=== PATIENT | male | born 1995 | race Caucasian/White ===

== ENCOUNTER → 2016-11-27 | Outpatient (REF) | payer BC, OTHER ==
[~2016-11-27] MED LIST: NO HOME MEDICATIONS; PROZ20CA11 PO
[2016-11-27 12:35] LABS: ALBUMIN 4.5 GM/DL (3.2-5.2); ALBUMIN/GLOBULIN RATIO 1.41 (1.00-1.93); ALKALINE PHOSPHATASE 91 U/L (45-117); ALT/SGPT 197 U/L (12-78); ANION GAP 6 MEQ/L (8-16); AST/SGOT 87 U/L (15-37); BILIRUBIN,TOTAL 1.7 MG/DL (0.2-1.0); BLOOD UREA NITROGEN 17 MG/DL (7-18); CALCIUM LEVEL 10.3 MG/DL (8.5-10.1); CARBON DIOXIDE LEVEL 32 MEQ/L (21-32); CHLORIDE LEVEL 104 MEQ/L (98-107); CREATININE FOR GFR 0.94 MG/DL (0.70-1.30); GLUCOSE, FASTING 86 MG/DL (70-105); POTASSIUM SERUM 4.6 MEQ/L (3.5-5.1); SODIUM LEVEL 142 MEQ/L (136-145); TOTAL PROTEIN 7.7 GM/DL (6.4-8.2)
[2016-12-01 00:06] LABS: ALT 188 IU/L (0-55); FIBROSIS STAGE F1-F2 (.); GGT 81 IU/L (0-65); HAPTOGLOBIN 117 mg/dL (34-200); NECROINFLAMM GRADE A3-Severe activity (.); TOTAL BILIRUBIN 1.7 mg/dL (0.0-1.2)
== END ==
LOC: M SFHCPLAZ 09:13
PROVIDERS: ATTEND Internal Medicine Infectious Disease
DX: B18.2 Chronic viral hepatitis C (principal)

== ENCOUNTER → 2016-12-17 | Day surgery (SDC) | payer BC ==
[~2016-12-17] VITALS: Ht 175.3 cm; Wt 77.1 kg
[~2016-12-17] MED LIST changes: +LIDOCAINE 2% INJ 100 MG/5 ML SDV (FOR ANES.) As Ordered ONE; +LIDOCAINE W/EPINEPHRINE 1% 20ML VIAL As Ordered ONE; +LIDOCAINE W/EPINEPHRINE 1% 20ML VIAL XX ONE; +LR 1,000 ML IV SCH; +MIDAZOLAM INJ 2 MG/2 ML VIAL (J2250) As Ordered ONE; +NORCO, ANEXSIA 5/325MG TABLET (HYDROcodone/ACETAMINOPHEN) PO PRN; +PERCOCET 5MG/325MG TAB As Ordered ONE; +PERCOCET 5MG/325MG TAB PO PRN; +PROPOFOL 200 MG/20 ML VIAL As Ordered ONE
[2016-12-17] MEDS: LR 1,000 ML IV SCH ×3 (10:15→10:49)
--- NOTE | 2016-12-17 13:29 | REP ---
FLUOROSCOPIC GUIDANCE FOR FOREIGN BODY REMOVAL: 12/17/2016. Four images from C-arm fluoroscopy provided to Dr. York of the surgery department for fluoroscopically guided removal of the antecubital fossa needle foreign body. The first two images show the linear short-segment of the needle in the antecubital fossa with the second image showing a probe adjacent to it. The other two images are lateral and oblique lateral projections. Fluoroscopy time 14.8 seconds. Signed by Parish Olivares MD 12/17/2016 01:55 P
[2016-12-17] MEDS: fentaNYL 100 MCG/2 ML INJECTION (J3010) IV PRN ×2 (13:33→13:45)
[2016-12-17 15:10] VITALS: BP 128/84
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
== END | disposition home or self-care (01) ==
LOC: M SDC 09:42
PROVIDERS: ATTEND Surgery
DX: S50.852A Superficial foreign body of left forearm, initial encounter (principal); B18.2 Chronic viral hepatitis C; F17.210 Nicotine dependence, cigarettes, uncomplicated; F41.9 Anxiety disorder, unspecified; F32.9 Major depressive disorder, single episode, unspecified; Z79.899 Other long term (current) drug therapy; Y93.89 Activity, other specified; Y92.9 Unspecified place or not applicable
CPT/HCPCS: 25248; 76000; 88300; J0690; J2250; J3010

== ENCOUNTER → 2016-12-27 | Outpatient (REF) | payer BC ==
[~2016-12-27] MED LIST changes: -LIDOCAINE 2% INJ 100 MG/5 ML SDV (FOR ANES.) As Ordered ONE; -LIDOCAINE W/EPINEPHRINE 1% 20ML VIAL As Ordered ONE; -LIDOCAINE W/EPINEPHRINE 1% 20ML VIAL XX ONE; -LR 1,000 ML IV SCH; -MIDAZOLAM INJ 2 MG/2 ML VIAL (J2250) As Ordered ONE; -NORCO, ANEXSIA 5/325MG TABLET (HYDROcodone/ACETAMINOPHEN) PO PRN; -PERCOCET 5MG/325MG TAB As Ordered ONE; -PERCOCET 5MG/325MG TAB PO PRN; -PROPOFOL 200 MG/20 ML VIAL As Ordered ONE
== END | disposition home or self-care (01) ==
LOC: M LAB REF 08:59
PROVIDERS: ATTEND Physician Assistant Medical
DX: S41.102A Unspecified open wound of left upper arm, initial encounter (principal); X58.XXXA Exposure to other specified factors, initial encounter; Y92.9 Unspecified place or not applicable; Y93.9 Activity, unspecified; Y99.9 Unspecified external cause status

== ENCOUNTER 2017-10-01 13:37 | Inpatient (IN) | payer BC ==
[~2017-10-01] VITALS: Ht 175.3 cm; Wt 76.0 kg
[2017-10-01 14:11] LABS: MEAN CORPUSCULAR HEMOGLOBIN 31.2 pg (27.0-33.0); MEAN CORPUSCULAR HGB CONC 34.8 g/dl (32.0-36.5); MEAN CORPUSCULAR VOLUME 89.7 fl (80.0-96.0); PLATELET COUNT, AUTOMATED 352 10^3/uL (150-450); RED CELL DISTRIBUTION WIDTH 12.2 % (11.5-14.5); WHITE BLOOD COUNT 7.9 10^3/uL (4.0-10.0)
[2017-10-01 14:49] LABS: ALBUMIN 4.7 GM/DL (3.2-5.2); ALBUMIN/GLOBULIN RATIO 1.24 (1.00-1.93); ALKALINE PHOSPHATASE 90 U/L (45-117); ALT/SGPT 56 U/L (12-78); ANION GAP 6 MEQ/L (8-16); AST/SGOT 26 U/L (7-37); BILIRUBIN,DIRECT 0.3 MG/DL (0.0-0.2); BILIRUBIN,TOTAL 1.3 MG/DL (0.2-1.0); BLOOD UREA NITROGEN 15 MG/DL (7-18); CALCIUM LEVEL 9.7 MG/DL (8.5-10.1); CARBON DIOXIDE LEVEL 29 MEQ/L (21-32); CHLORIDE LEVEL 106 MEQ/L (98-107); CREATININE FOR GFR 0.96 MG/DL (0.70-1.30); GLOMERULAR FILTRATION RATE > 60.0 (>60); GLUCOSE, FASTING 93 MG/DL (70-105); POTASSIUM SERUM 4.3 MEQ/L (3.5-5.1); SODIUM LEVEL 141 MEQ/L (136-145); TOTAL PROTEIN 8.5 GM/DL (6.4-8.2)
[2017-10-01 14:50] LABS: METHADONE URINE NEGATIVE (NEGATIVE)
[2017-10-01] MEDS ORDERED: MOM 30ML SUSPENSION UDC PO PRN (19:00)
[2017-10-01] MEDS ORDERED: traZODone 50 MG TAB PO PRN (19:00)
[2017-10-01] MEDS ORDERED: MAALOX 30 ML SUSP *UDC PO PRN (19:00)
[2017-10-01] MEDS ORDERED: ACETAMINOPHEN TAB 650MG DOSE (2X325MG) PO PRN (19:00)
[2017-10-01] MEDS: LORazepam 2 MG TAB PO PRN (19:16)
[2017-10-01 21:42] VITALS: BP 139/102
[2017-10-01] MEDS: THIAMINE 100 MG TAB PO SCH (23:10)
[2017-10-01 23:43] VITALS: BP 128/78
[2017-10-01 23:45] VITALS: BP 128/78
[2017-10-02 06:10] VITALS: BP 115/69
[2017-10-02 08:18] VITALS: BP 138/90
[2017-10-02] MEDS: LORazepam 2 MG TAB PO PRN (08:23)
[2017-10-02] MEDS: THIAMINE 100 MG TAB PO SCH ×2 (08:23→20:49)
[2017-10-02] MEDS: FOLIC ACID 1 MG TAB PO SCH (08:23)
[2017-10-02] MEDS: MULTIVITAMINS/MINERALS THERAP 1 TAB PO SCH (08:23)
[2017-10-02] MEDS: chlordiazePOXIDE 25 MG CAP PO SCH ×3 (09:00→20:49)
--- NOTE | 2017-10-02 09:24 | HPEPDOC ---
[facility] Medical History & Physical Date of Admission Oct 01, 2017 History and Physical PCP: None Infectious disease. Dr Valerio ATTENDING: Dr. Jabier Triana HPI: 22yoM admitted to [facility] for unspecified depressive disorder, being medically examined today. No acute medical complaints today. Denies any fevers, chills, weakness, fatigue, CIFUENTES, CP, SOB, cough, palpitations, abdominal pain, N/V /D or changes in bowel or bladder habits. PMHx: Anxiety Depression History of IVDU (as per previous records, patient denies today.) Chronic hepatitis C. (Patient states is related to using a razor that his friend had used). Substance use PSHX: Tonsillectomy Foreign body removed from left antecubital 12/19. Pathology foreign body 12/19. Foreign body, left forearm, removal: Foreign body ( consistent with Needle Tip). SOCHX: Resides in: [facility] Marital Status: Kids: 1 Employment: Asbestos removal Tobacco use: Patient states quit one week ago, smoking 1-1/2 packs per day 2 years ETOH: Ricardo, 2-3 drinks. Illicit Drugs: Patient states marijuana. Denies any other drug use. IV Drug Use: Patient Denies Tattoos done unprofessionally: Denies FAMHX: Mother: Alive, well Father: Alive, well Siblings: Alive, well Children: Alive, well Unexpected deaths due to medical reasons: None. ROS: As noted in HPI, otherwise 11pt ROS of systems reviewed and unremarkable. PE: GEN: 22 yo M, appears stated age. Well-nourished, well developed. No acute distress. Alert and oriented x 3. Avoids eye contact HEENT: Normocephalic, atraumatic. Pupils are equal, round, and reactive to light. Extraocular movements are intact. No nystagmus appreciated. Sclera are nonicteric. Conjunctiva without injection. Nose midline. Nasal turbinates without bogginess. EACs both patent BL. TMs both visualized and gill with good cone of light, no bulging or erythema. No facial asymmetry. Moist mucous membranes. Dentition fair. Pharynx pink and moist, no cobblestoning. Neck supple , trachea midline. No lymphadenopathy or thyromegaly appreciated. CHEST: Regular rate and rhythm, +S1, +S2 LUNGS: Clear to auscultation bilaterally. No wheezes, rales, or rhonchi. Breathing appears symmetric and easy. Patient is speaking in full sentences. No accessory muscle use. ABD: Round, soft, non-tender, non-distended. +Bowel sounds throughout. No rebound or guarding. No costovertebral angle tenderness. EXT: Pulses 2+ bilaterally dorsalis pedis and radial. No lower extremity edema appreciated. SKIN: [place], dry, warm. Capillary refill <2sec. No rashes. NEURO: Alert and oriented x 3. Cranial nerves III-XII are intact. No focal deficits appreciated. EKG: Pending A&P: 22yoM admitted to [facility] for unspecified depressive disorder 1. Psych. Plan per Psychiatry. Obtain baseline EKG to assure the safety of psychiatric medications as they can prolong the QT interval. 2. Nicotine dependence. Patch available. 3. Chronic hepatitis C. Management as per Dr. Valerio. Arrange follow-up with Dr. Valerio at discharge. 4. Follow up. No Primary Care Provider. Will attempt to establish PCP on discharge. 5. Substance use. Per psychiatry. 6. Staff member Michael present throughout exam. Vital Signs Vital Signs Date Time Temp Pulse Resp B/P (MAP) Pulse Ox O2 Delivery O2 Flow Rate FiO2 10/02/17 08:18 88 138/90 10/02/17 06:10 99.1 14 10/01/17 21:42 98 Room Air Laboratory Data Labs 24H Laboratory Tests 2 10/01/17 13:58: Nucleated Red Blood Cells % (auto) 0.0, Anion Gap 6L, Glomerular Filtration Rate > 60.0, Calcium Level 9.7, Aspartate Amino Transf (AST/SGOT) 26, Alanine Aminotransferase (ALT/SGPT) 56, Alkaline Phosphatase 90, Total Bilirubin 1.3H, Direct Bilirubin 0.3H, Total Protein 8.5H, Albumin 4.7, Albumin/Globulin Ratio 1.24, Thyroid Stimulating Hormone (TSH) 0.827, Salicylates Level < 1.7L, Urine Amphetamines Screen NEGATIVE, Urine Benzodiazepines Screen NEGATIVE, Urine Opiates Screen NEGATIVE, Urine Methadone Screen NEGATIVE, Acetaminophen Level < 2.0L, Urine Barbiturates Screen NEGATIVE, Urine Phencyclidine Screen NEGATIVE, Urine Cocaine Metabolite Screen NEGATIVE, Urine Cannabinoids Screen POSITIVEH, Ethyl Alcohol Level < 0.003 CBC/BMP Laboratory Tests 10/01/17 13:58 Red Blood Count 5.54, Mean Corpuscular Volume 89.7, Mean Corpuscular Hemoglobin 31.2, Mean Corpuscular Hemoglobin Concent 34.8, Red Cell Distribution Width 12.2 Home Medications No Active Prescriptions or Reported Meds Allergies Coded Allergies: Venlafaxine (Verified Allergy, Unknown, 10/13/14) PT REPORTS "I MADE ME CRAZY" Shonda Bills Oct 02, 2017 09:24
[2017-10-02 10:13] VITALS: BP 138/88
[2017-10-02] MEDS: DIVALPROEX 250 MG TAB PO SCH ×2 (10:38→20:48)
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
[2017-10-02] MEDS: NICOTINE 21MG/24HR 1 EA TRANSDERMAL TD SCH (11:37)
[2017-10-02 15:13] VITALS: BP 163/115
[2017-10-02 16:20] VITALS: BP 148/100
[2017-10-02] MEDS: chlordiazePOXIDE 25 MG CAP PO PRN (16:25)
[2017-10-02 18:00] VITALS: BP 148/90
[2017-10-02] MEDS: QUEtiapine FUMARATE 100 MG TAB PO SCH (20:49)
[2017-10-03 06:55] VITALS: BP 149/69
--- NOTE | 2017-10-03 07:20 | ECGEPIP ---
Stationary ECG Study [facility] Test Date: 2017-10-02 Pat Name: GENARO SCOTT Department: Room: [place] [address] Gender: M Senior Qc Technician: LAURA : 1995 Requested By: Shonda Bills Order Number: [id number] Reading MD: Sharmin Francis Measurements Intervals [place] Rate: 115 P: 76 CA: 156 QRS: 85 QRSD: 97 T: 42 QT: 324 QTc: 449 Interpretive Statements SINUS TACHYCARDIA RATE FASTER PERSISTENT SEPTAL EARLY REPOLAR C/W 10/12/14 Electronically Signed On 10-03-2017 7:20:21 EST by Sharmin Francis
[2017-10-03] MEDS: THIAMINE 100 MG TAB PO SCH ×2 (08:42→20:28)
[2017-10-03] MEDS: chlordiazePOXIDE 25 MG CAP PO SCH ×3 (08:42→20:28)
[2017-10-03] MEDS: MULTIVITAMINS/MINERALS THERAP 1 TAB PO SCH (08:42)
[2017-10-03] MEDS: FOLIC ACID 1 MG TAB PO SCH (08:42)
[2017-10-03] MEDS: DIVALPROEX 250 MG TAB PO SCH ×2 (08:43→20:28)
[2017-10-03] MEDS: NICOTINE 21MG/24HR 1 EA TRANSDERMAL TD SCH (08:45)
[2017-10-03 10:46] VITALS: BP 144/92
[2017-10-03] MEDS: chlordiazePOXIDE 25 MG CAP PO PRN ×2 (10:48→17:23)
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
[2017-10-03 17:22] VITALS: BP 148/90
[2017-10-03] MEDS: QUEtiapine FUMARATE 100 MG TAB PO SCH (20:28)
[2017-10-04 06:38] VITALS: BP 141/90
[2017-10-04] MEDS: THIAMINE 100 MG TAB PO SCH (08:27)
[2017-10-04] MEDS: NICOTINE 21MG/24HR 1 EA TRANSDERMAL TD SCH (08:27)
[2017-10-04] MEDS: MULTIVITAMINS/MINERALS THERAP 1 TAB PO SCH (08:27)
[2017-10-04] MEDS: DIVALPROEX 250MG *ER* TAB PO SCH (08:27)
[2017-10-04] MEDS: FOLIC ACID 1 MG TAB PO SCH (08:28)
[2017-10-04] MEDS: chlordiazePOXIDE 25 MG CAP PO SCH ×2 (08:28→20:06)
[2017-10-04 08:55] VITALS: BP 148/90
[2017-10-04 10:34] VITALS: BP 138/90
[2017-10-04] MEDS: chlordiazePOXIDE 25 MG CAP PO PRN ×2 (10:40→15:53)
[2017-10-04 15:50] VITALS: BP 142/92
--- NOTE | 2017-10-04 16:58 | MHIPN ---
DATE: 10/04/2017 CHIEF COMPLAINT: Says feels a bit better. SUBJECTIVE: Seen for followup in the presence of staff. Says feels a bit better, irritability has continued but not as intensely, says had come to his room yesterday, and cried, and did not hit himself, did not feel like doing so either. Says sleep was broken last night. He has been worried about his brother, who was "jumped" recently, but [place], so the patient is more reassured. MENTAL STATUS EXAMINATION: He is neat, he is cooperative. No agitation, no psychomotor retardation. Appears mildly anxious, but not irritable. Affect somewhat broader than yesterday, and less labile. Denies any thoughts of harming himself at present or anyone else. No evidence of any psychosis. Cognition grossly intact. Judgment and insight though compromised, are possibly somewhat improved. ASSESSMENT: 1. Other specified bipolar and related disorders. 2. Consider posttraumatic stress disorder. 3. Cannabis use disorder. VITAL SIGNS: Blood pressure 138/90, pulse 92, temperature 98.6. PLAN: Continue with the quetiapine, may need to consider increasing it, as well as the Depakote; Depakote is increased to a total of 750 mg to help address his moods. We will also obtain a valproic acid level in a few days. He will be encouraged to participate in activities in the unit. He will be seeing the treatment team tomorrow, and the assigned psychiatrist.
[2017-10-04] MEDS: DIVALPROEX 500MG *ER* TAB PO SCH (20:06)
[2017-10-04 21:00] VITALS: BP 136/92
[2017-10-04] MEDS ORDERED: traZODone 50 MG TAB PO ONE (21:45)
[2017-10-04] MEDS: QUEtiapine FUMARATE 100 MG TAB PO SCH (22:10)
[2017-10-04] MEDS ORDERED: OLANZapine 5 MG TAB PO ONE (22:15)
[2017-10-05 07:00] VITALS: BP 106/57
[2017-10-05] MEDS: chlordiazePOXIDE 25 MG CAP PO SCH ×2 (08:40→21:08)
[2017-10-05] MEDS: NICOTINE 21MG/24HR 1 EA TRANSDERMAL TD SCH (08:40)
[2017-10-05] MEDS: MULTIVITAMINS/MINERALS THERAP 1 TAB PO SCH (08:40)
[2017-10-05] MEDS: DIVALPROEX 250MG *ER* TAB PO SCH (08:41)
[2017-10-05] MEDS: FOLIC ACID 1 MG TAB PO SCH (08:41)
[2017-10-05 11:27] VITALS: BP 106/57
[2017-10-05 11:40] VITALS: BP 158/94
[2017-10-05] MEDS: chlordiazePOXIDE 25 MG CAP PO PRN ×2 (11:43→17:59)
[2017-10-05] MEDS: OLANZapine 5 MG TAB PO PRN ×2 (13:19→21:56)
[2017-10-05 17:56] VITALS: BP 141/72
[2017-10-05 18:00] VITALS: BP 29/73
--- NOTE | 2017-10-05 18:29 | MHIPN ---
DATE: 10/05/2017 HISTORY: A 22-year-old male with history of depression and polysubstance dependency admitted for depression and suicidal thoughts. His parents reported that he spent hours each day crying in the basement. His father also reported that he found a large filet knife out on the counter before admission. MEDICATIONS: - Depakote 250 mg by mouth every morning and 500 mg by mouth at bedtime - Seroquel 100 mg by mouth at bedtime - Zyprexa 5 mg as needed for anxiety - Librium 25 mg by mouth twice a day plus as needed for alcohol withdrawal SUBJECTIVE: "I'm feeling a little better but I have a lot of anxiety and panic." OBJECTIVE: The patient has improved slightly since admission. The patient says that with the medication the patient is able to be, "a little calmer." The patient is denying side effects from the medication. The patient reports waking up quite frequent. The patient continues to be taking Librium for alcohol withdrawal. No evidence of psychotic symptoms. No auditory or visual hallucinations or delusions. MENTAL STATUS EXAMINATION: The patient is dressed in [facility]. The patient is cooperative. He has poor eye contact. Speech is soft and monotone. Mood is depressed and anxious. Affect is restricted. No delusions. No hallucinations. Memory, attention and concentration are impaired. The patient is able to contract for safety. Insight and judgment is limited. ASSESSMENT: 1. Depression. 2. Suicidal ideation. 3. Rule out bipolar disorder. 4. Polysubstance dependency by history. PLAN: 1. Increase Depakote to 500 mg by mouth twice a day. 2. Increase Seroquel to 200 mg by mouth at bedtime. 3. Continue Librium taper. 4. Continue medication management, individual and group therapy.
[2017-10-05 21:00] VITALS: BP_SYST 130; BP_DIAS 73; BP_DIAS 90
[2017-10-05] MEDS ORDERED: QUEtiapine FUMARATE 200 MG TAB PO SCH (21:00)
[2017-10-05] MEDS: DIVALPROEX 500MG *ER* TAB PO SCH (21:08)
[2017-10-06] VITALS (7 sets, daily range): BP systolic 101–135; BP diastolic 52–97
[2017-10-06] MEDS: NICOTINE 21MG/24HR 1 EA TRANSDERMAL TD SCH (08:34)
[2017-10-06] MEDS: DIVALPROEX 500 MG TAB PO SCH (08:35)
[2017-10-06] MEDS: MULTIVITAMINS/MINERALS THERAP 1 TAB PO SCH (08:35)
[2017-10-06] MEDS: FOLIC ACID 1 MG TAB PO SCH (08:35)
[2017-10-06] MEDS: OLANZapine 5 MG TAB PO PRN (09:06)
[2017-10-06] MEDS: QUEtiapine FUMARATE 25 MG TAB PO PRN ×2 (13:03→19:49)
[2017-10-06] MEDS: chlordiazePOXIDE 25 MG CAP PO PRN ×2 (15:55→20:56)
--- NOTE | 2017-10-06 16:23 | MHIPN ---
DATE: 10/06/2017 HISTORY: A 22-year-old male with history of depression and polysubstance dependency, admitted for depression and suicidal thoughts. His parents reported that he spent hours each day crying in the basement. His father also reported that he found a large filet knife out on the counter before admission. MEDICATIONS: - Depakote 500 mg by mouth twice a day - Seroquel 100 mg by mouth at bedtime - Zyprexa 5 mg as needed for anxiety - Librium 25 mg by mouth twice a day as needed for alcohol withdrawal SUBJECTIVE: "I'm still very anxious." OBJECTIVE: The patient is improving very slowly but continues to report episodes in which he feels anxious, hyperactive, impulsive. The above is compatible with a bipolar spectrum. The patient is denying side effect from the medication. He says that he could not sleep at all last night. No evidence of auditory or visual hallucinations or delusions. MENTAL STATUS EXAMINATION: The patient is dressed in [facility]. The patient is cooperative. He has fair eye contact. Speech is soft and monotone. Mood is depressed and anxious. Affect is restricted. No delusions. No hallucinations. Memory, attention and concentration are impaired. The patient is able to contract for safety. Insight and judgment is limited. ASSESSMENT: 1. Depression. 2. Suicidal ideation. 3. Rule out bipolar disorder. 4. Polysubstance dependency by history. PLAN: 1. Increase Depakote to 500 mg by mouth every morning and 750 mg by mouth at bedtime. 2. Continue with Librium 25 by mouth twice a day as needed for alcohol withdrawal. 3. Increase Seroquel to 300 mg by mouth at bedtime and 25 mg by mouth three times a day as needed for high anxiety. 4. Continue medication management, individual and group therapy.
[2017-10-06] MEDS: QUEtiapine FUMARATE 100 MG TAB PO SCH (20:56)
[2017-10-06] MEDS: DIVALPROEX 250 MG TAB PO SCH (20:57)
[2017-10-07 06:43] VITALS: BP 129/71
[2017-10-07] MEDS: DIVALPROEX 500 MG TAB PO SCH (08:07)
[2017-10-07] MEDS: MULTIVITAMINS/MINERALS THERAP 1 TAB PO SCH (08:07)
[2017-10-07] MEDS: FOLIC ACID 1 MG TAB PO SCH (08:07)
[2017-10-07] MEDS: NICOTINE 21MG/24HR 1 EA TRANSDERMAL TD SCH (08:07)
[2017-10-07] MEDS: SERTRALINE HCL 25 MG TABLET PO SCH (09:00)
[2017-10-07] MEDS: QUEtiapine FUMARATE 25 MG TAB PO PRN ×2 (09:12→16:10)
--- NOTE | 2017-10-07 15:22 | MHIPN ---
DATE: 10/07/2017 HISTORY: 22-year-old male with history of depression and polysubstance dependency admitted for depression and suicidal thoughts. The patient's parents reported that he spent hours each day crying in the basement. His father also reported that he found a large knife out on the counter before admission. MEDICATIONS: - Depakote 500 mg by mouth every morning and 750 mg by mouth nightly - Seroquel 300 mg by mouth nightly plus 25 mg by mouth three times a day as needed for high anxiety. SUBJECTIVE: "I have panic attacks". OBJECTIVE: The patient is improving slowly. The patient reports feeling less hyperactive and impulsive. The patient also reports less mind racing. The above symptoms could be compatible with a bipolar spectrum but also reports panic attacks. He is somewhat medication seeking and wants a medication that acts fast for his anxiety. He is frustrated when he is told that we will not use any medication that could be addictive or benzodiazepines. MENTAL STATUS EXAMINATION: The patient is dressed in [facility]. The patient is partially cooperative, although he became frustrated during the interview. Speech is soft and monotone. Mood is depressed and anxious. Affect is restricted. No delusions. No hallucinations. Memory, attention and concentration are fair. The patient is able to contract for safety during the interview. Insight and judgment is limited. ASSESSMENT: 1. Depression. 2. Suicidal ideation. 3. High anxiety. 4. Rule out bipolar disorder. 5. Polysubstance dependency. PLAN: 1. Discontinue Librium. 2. Continue Depakote 500 mg by mouth every morning and 750 by mouth nightly. 3. Continue Seroquel 300 mg by mouth nightly plus 25 mg by mouth three times a day as needed for anxiety. 4. Continue medication management, individual and group therapy.
[2017-10-07] MEDS ORDERED: QUEtiapine FUMARATE 100 MG TAB PO ONE (17:00)
[2017-10-07] MEDS ORDERED: ZIPRASIDONE 20MG CAPSULE (GEODON) PO ONE (17:15)
[2017-10-07 18:00] VITALS: BP 140/80
[2017-10-07] MEDS: DIVALPROEX 250 MG TAB PO SCH (20:27)
[2017-10-07] MEDS: QUEtiapine FUMARATE 100 MG TAB PO SCH (20:27)
[2017-10-08 06:34] VITALS: BP 130/61
[2017-10-08] MEDS: FOLIC ACID 1 MG TAB PO SCH (08:16)
[2017-10-08] MEDS: MULTIVITAMINS/MINERALS THERAP 1 TAB PO SCH (08:16)
[2017-10-08] MEDS: NICOTINE 21MG/24HR 1 EA TRANSDERMAL TD SCH (08:16)
[2017-10-08] MEDS: DIVALPROEX 500 MG TAB PO SCH (08:17)
[2017-10-08] MEDS: SERTRALINE HCL 25 MG TABLET PO SCH (08:17)
[2017-10-08] MEDS: CitaloPRAM (CeleXA) 10 MG TABLET PO SCH ×2 (09:00→17:29)
[2017-10-08] MEDS: QUEtiapine FUMARATE 25 MG TAB PO PRN (09:32)
[2017-10-08] MEDS ORDERED: QUEtiapine FUMARATE 100 MG TAB PO ONE (11:30)
--- NOTE | 2017-10-08 16:14 | MHIPN ---
DATE: 10/08/2017 HISTORY: A 22-year-old male with history of depression and polysubstance dependency admitted for depression and suicidal thoughts. The patient's parents reported that he spent hours each day crying in the basement. His father also reported that he found a large knife out on the counter before admission. MEDICATIONS: - Depakote 500 mg by mouth every morning and 750 mg by mouth at bedtime - Seroquel 300 mg by mouth at bedtime plus 25 mg by mouth three times a day as needed for anxiety SUBJECTIVE: "I have very high anxiety and panic attacks." OBJECTIVE: The patient continues somewhat benzodiazepine seeking. I told him that benzodiazepines are not appropriate for his treatment since he has a chemical dependency. He is stating that nothing else has worked and this is the only medication he gets relief from. I discussed again the treatment with the patient. is improving slowly. The patient reports feeling less hyperactive and impulsive. MENTAL STATUS EXAMINATION: The patient is dressed in [facility]. The patient is partially cooperative, becomes frustrated when he does not get the medication he is asking for (benzodiazepines). Speech is soft and monotone. Mood is depressed and anxious. Affect is restricted. No delusions. No hallucinations. Memory, attention and concentration are fair. The patient is able to contract for safety during the interview. Insight and judgment is limited. ASSESSMENT: 1. Depression. 2. Suicidal ideation. 3. High anxiety/panic. 4. Rule out bipolar disorder. 5. Polysubstance dependency. PLAN: 1. Continue Depakote 500 mg by mouth every morning and 750 by mouth at bedtime. 2. Continue Seroquel 300 mg by mouth at bedtime and 50 mg by mouth three times a day as needed for anxiety and agitation. 3. Celexa 5 mg by mouth every morning.
[2017-10-08 18:00] VITALS: BP 134/89
[2017-10-08] MEDS: QUEtiapine FUMARATE 50 MG TAB PO PRN (18:04)
[2017-10-08] MEDS: DIVALPROEX 250 MG TAB PO SCH (20:43)
[2017-10-08] MEDS: QUEtiapine FUMARATE 100 MG TAB PO SCH (20:44)
[2017-10-08] MEDS ORDERED: LORazepam 1 MG TAB PO ONE (21:15)
[2017-10-09 06:39] VITALS: BP 135/66
[2017-10-09] MEDS: NICOTINE 21MG/24HR 1 EA TRANSDERMAL TD SCH (08:30)
[2017-10-09] MEDS: CitaloPRAM (CeleXA) 10 MG TABLET PO SCH (08:32)
[2017-10-09] MEDS: DIVALPROEX 500 MG TAB PO SCH (08:33)
[2017-10-09] MEDS: QUEtiapine FUMARATE 50 MG TAB PO PRN ×3 (09:30→16:44)
[2017-10-09 18:00] VITALS: BP 138/92
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
[2017-10-09] MEDS: QUEtiapine FUMARATE 100 MG TAB PO SCH (20:36)
[2017-10-09] MEDS: DIVALPROEX 250 MG TAB PO SCH (20:36)
[2017-10-10 06:26] VITALS: BP 116/72
[2017-10-10] MEDS: CitaloPRAM (CeleXA) 10 MG TABLET PO SCH (08:25)
[2017-10-10] MEDS: NICOTINE 21MG/24HR 1 EA TRANSDERMAL TD SCH (08:25)
[2017-10-10] MEDS: DIVALPROEX 500 MG TAB PO SCH (08:25)
[2017-10-10] MEDS: QUEtiapine FUMARATE 50 MG TAB PO PRN ×2 (09:55→16:38)
[2017-10-10 18:00] VITALS: BP 136/85
[2017-10-10] MEDS: DIVALPROEX 250 MG TAB PO SCH (20:24)
[2017-10-10] MEDS: QUEtiapine FUMARATE 100 MG TAB PO SCH (20:24)
[2017-10-11] MEDS: QUEtiapine FUMARATE 50 MG TAB PO PRN ×3 (05:26→20:02)
[2017-10-11] MEDS ORDERED: LORazepam 2 MG TAB PO ONE (06:15)
[2017-10-11] MEDS: DIVALPROEX 500 MG TAB PO SCH (08:13)
[2017-10-11] MEDS: NICOTINE 21MG/24HR 1 EA TRANSDERMAL TD SCH (08:13)
[2017-10-11] MEDS: CitaloPRAM (CeleXA) 10 MG TABLET PO SCH (08:13)
[2017-10-11] MEDS ORDERED: LORazepam 1 MG TAB PO ONE (15:00)
[2017-10-11 18:00] VITALS: BP 134/87
[2017-10-11] MEDS ORDERED: traZODone 50 MG TAB PO PRN (21:45)
[2017-10-11] MEDS ORDERED: LORazepam 1 MG TAB PO PRN (21:45)
[2017-10-11] MEDS: DIVALPROEX 250 MG TAB PO SCH (22:29)
[2017-10-11] MEDS: QUEtiapine FUMARATE 100 MG TAB PO SCH (22:29)
[2017-10-12 06:35] VITALS: BP 121/72
[2017-10-12] MEDS: DIVALPROEX 500 MG TAB PO SCH (09:50)
[2017-10-12] MEDS: QUEtiapine FUMARATE 50 MG TAB PO PRN (09:50)
[2017-10-12] MEDS: CitaloPRAM (CeleXA) 10 MG TABLET PO SCH (09:50)
[2017-10-12] MEDS: NICOTINE 21MG/24HR 1 EA TRANSDERMAL TD SCH (09:50)
[2017-10-12] MEDS: LORazepam 1 MG TAB PO PRN (16:20)
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
[2017-10-12 18:00] VITALS: BP 136/94
[2017-10-12] MEDS: QUEtiapine FUMARATE 100 MG TAB PO SCH (20:27)
[2017-10-12] MEDS: DIVALPROEX 250 MG TAB PO SCH (20:28)
[2017-10-13 06:39] VITALS: BP 130/69
[2017-10-13] MEDS: CitaloPRAM (CeleXA) 20 MG TAB PO SCH (08:22)
[2017-10-13] MEDS: NICOTINE 21MG/24HR 1 EA TRANSDERMAL TD SCH (08:23)
[2017-10-13] MEDS: DIVALPROEX 500 MG TAB PO SCH (08:23)
[2017-10-13] MEDS: LORazepam 1 MG TAB PO PRN (09:45)
[2017-10-13] MEDS: QUEtiapine FUMARATE 50 MG TAB PO PRN (14:29)
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
[2017-10-13 18:22] VITALS: BP 115/73
[2017-10-13] MEDS: DIVALPROEX 250 MG TAB PO SCH (20:23)
[2017-10-13] MEDS ORDERED: QUEtiapine FUMARATE 200 MG TAB PO SCH (21:00)
[2017-10-14 06:43] VITALS: BP 113/69
[2017-10-14] MEDS: DIVALPROEX 500 MG TAB PO SCH (08:17)
[2017-10-14] MEDS: NICOTINE 21MG/24HR 1 EA TRANSDERMAL TD SCH (08:17)
[2017-10-14] MEDS: CitaloPRAM (CeleXA) 20 MG TAB PO SCH (08:17)
[2017-10-14] MEDS ORDERED: CELE20TA PO (08:42)
[2017-10-14] MEDS ORDERED: DEPA1TAB3 PO (08:42)
[2017-10-14] MEDS ORDERED: DEPA250T32 PO (08:42)
[2017-10-14] MEDS ORDERED: QUET400T PO (08:42)
[2017-10-14] MEDS ORDERED: QUET5TAB PO (08:42)
[2017-10-14] MEDS: LORazepam 1 MG TAB PO PRN (08:48)
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
[2017-10-17 02:10] LABS: ALT 57 IU/L (0-55); GGT 40 IU/L (0-65); HAPTOGLOBIN 106 mg/dL (34-200); HEPATITIS C QUANTITATION 348880 IU/mL (.); HEPATITIS C VIRUS GENOTYPE 1a (.); NECROINFLAM SCORE 0.28 (0.00-0.17); NECROINFLAMM GRADE A0-A1 (.); TOTAL BILIRUBIN 0.6 mg/dL (0.0-1.2)
== END 2017-10-14 11:25 | disposition home or self-care (01) | DRG 753 ==
LOC: M ED 13:37 → M ED INP 18:52 → M PSY 21:29
PROVIDERS: ADMIT Psychiatry & Neurology Psychiatry; ATTEND Psychiatry & Neurology Psychiatry
DX: F31.9 Bipolar disorder, unspecified (principal); R45.851 Suicidal ideations; F43.10 Post-traumatic stress disorder, unspecified; F12.10 Cannabis abuse, uncomplicated; F10.10 Alcohol abuse, uncomplicated; F41.0 Panic disorder [episodic paroxysmal anxiety]; B18.2 Chronic viral hepatitis C; F17.210 Nicotine dependence, cigarettes, uncomplicated; Z88.8 Allergy status to other drugs, medicaments and biological substances

== ENCOUNTER 2019-04-04 11:00 | Observation (INO) | payer BC ==
[~2019-04-04] VITALS: Ht 175.3 cm; Wt 75.7 kg
[~2019-04-04 11:00] MED LIST changes: +CELE20TA PO; +DEPA1TAB3 PO; +DEPA250T32 PO; +NICOTINE 21MG/24HR 1 EA TRANSDERMAL TD SCH; +QUET400T PO; +QUET5TAB PO
[2019-04-04] MEDS ORDERED: ALPR0.5T3 PO (11:14)
[2019-04-04 11:52] LABS: HEMATOCRIT 49.9 % (42.0-52.0); MEAN CORPUSCULAR HEMOGLOBIN 31.7 pg (27.0-33.0); MEAN CORPUSCULAR HGB CONC 35.7 g/dl (32.0-36.5); MEAN CORPUSCULAR VOLUME 88.8 fl (80.0-96.0); PLATELET COUNT, AUTOMATED 285 10^3/uL (150-450); RED BLOOD COUNT 5.62 10^6/uL (4.30-6.10); WHITE BLOOD COUNT 15.4 10^3/uL (4.0-10.0)
[2019-04-04 11:58] LABS: HEMOGLOBIN 17.8 g/dl (13.5-17.5)
[2019-04-04] MEDS ORDERED: LORazepam 2 MG/ML VIAL (J2060) IV STA ×2 (12:28→14:28)
[2019-04-04] MEDS ORDERED: AMPICILLIN SOD/SULBACTAM SOD 3 GM in D5W MINI-BAG PLUS 100 ML IV ONE (12:30)
[2019-04-04] MEDS ORDERED: NS 1,000 ML IV ONE (12:30)
[2019-04-04] MEDS ORDERED: LISINOPRIL 20 MG TAB PO ONE (12:30)
[2019-04-04 12:36] LABS: ACETAMINOPHEN LEVEL < 2.0 UG/ML (10.0-30.0); ALBUMIN 4.5 GM/DL (3.2-5.2); ALT/SGPT 65 U/L (12-78); BILIRUBIN,DIRECT 0.8 MG/DL (0.0-0.2); BILIRUBIN,TOTAL 2.9 MG/DL (0.2-1.0); BLOOD UREA NITROGEN 21 MG/DL (7-18); CALCIUM LEVEL 9.6 MG/DL (8.5-10.1); CARBON DIOXIDE LEVEL 27 MEQ/L (21-32); CHLORIDE LEVEL 103 MEQ/L (98-107); CPK CREATINE PHOSPHOKINASE 203 U/L (39-308); ETHYL ALCOHOL (ETHANOL) < 0.003 % (0.000-0.010); GLOMERULAR FILTRATION RATE > 60.0 (>60); GLUCOSE, FASTING 106 MG/DL (70-100); POTASSIUM SERUM 3.7 MEQ/L (3.5-5.1); SALICYLATE LEVEL < 1.7 MG/DL (5.0-30.0); SODIUM LEVEL 139 MEQ/L (136-145); THYROID STIMULATING HORMONE 0.458 uIU/ML (0.358-3.740); TOTAL PROTEIN 8.3 GM/DL (6.4-8.2)
[2019-04-04 12:53] LABS: TROPONIN I < 0.02 NG/ML (< 0.10)
[2019-04-04 13:02] LABS: AMPHETAMINES LEVEL URINE POSITIVE (NEGATIVE); BARBITURATES URINE NEGATIVE (NEGATIVE); BENZODIAZEPINES URINE POSITIVE (NEGATIVE); CANNABINOIDS URINE POSITIVE (NEGATIVE); COCAINE METABOLITE URINE POSITIVE (NEGATIVE); METHADONE URINE NEGATIVE (NEGATIVE); OPIATES URINE POSITIVE (NEGATIVE); PHENCYCLIDINE URINE NEGATIVE (NEGATIVE)
[2019-04-04 13:11] VITALS: BP 153/88
--- NOTE | 2019-04-04 13:41 | REP ---
CHEST, SINGLE VIEW: There is no evidence of acute infiltrate. No pleural effusion is seen. The heart is normal in size. The mediastinal silhouette is unremarkable. The visualized osseous structures are intact. IMPRESSION: No acute pulmonary disease. Electronically Signed by Josiah Jung MD 04/05/2019 11:58 A
--- NOTE | 2019-04-04 14:16 | HPEPDOC ---
[facility] Medical History & Physical Date of Admission Apr 04, 2019 Date of Service: Apr 04, 2019 History and Physical CHIEF COMPLAINT: IVDA/suicidal ideation HISTORY OF PRESENT ILLNESS: 23 yo male presents for altered mental status, admits to polysubstance abuse with suicide attempt. Seen and examined at bedside. No medical complaints. Family at bedside. PAST MEDICAL HISTORY: #Hepatitis C #anxiety/depression #previous suicide attempt #polysubstance abuse including IVDA ALLERGIES: Please see below. REVIEW OF SYSTEMS: Negative except as per HPI HOME MEDICATIONS: Please see below. PHYSICAL EXAMINATION: VITAL SIGNS: See below GENERAL APPEARANCE: NAD, some visual hallucinations but coherent HEENT: NC/AT, EOMI, pupils dilated Lungs: CTA B/L Heart: +S1S2, tachy Abd: soft, NT, +BS Ext: no edema, cellulitic appearing area on bilateral 5th toe LABORATORY DATA: See below. MICROBIOLOGY: Please see below. ASSESSMENT: 23 yo male for IVDA/suicidal ideation, previous history of suicide attempt, polysubstance abuse, anxiety/depression. #suicide attempt/polysubstance abuse - suicide precautions, 1:1 obs - telemetry monitoring - continuous pulse oximetry - IV fluids - ativan as needed #possible cellulitis - received unasyn in ER - could transition to oral abx #Hep C - follows as o/p with ID #anxiety/depression #nicotine abuse - nicotine replacement therapy #DVT prophylaxis - not indicated Dispo: monitor for 24 hours on tele, re-evaluate, psych c/s when medically stable Vital Signs Vital Signs Date Time Temp Pulse Resp B/P (MAP) Pulse Ox O2 Delivery O2 Flow Rate FiO2 04/04/19 14:00 101 152/93 (112) 98 04/04/19 12:41 98.2 19 Room Air Laboratory Data Labs 24H Laboratory Tests 2 04/04/19 11:23: Nucleated Red Blood Cells % (auto) 0.0, Anion Gap 9, Glomerular Filtration Rate > 60.0, Calcium Level 9.6, Aspartate Amino Transf (AST/SGOT) 27, Alanine Aminotransferase (ALT/SGPT) 65, Alkaline Phosphatase 93, Total Bilirubin 2.9H, Direct Bilirubin 0.8H, Total Creatine Kinase 203, Troponin I < 0.02, Total Protein 8.3H, Albumin 4.5, Albumin/Globulin Ratio 1.18, Thyroid Stimulating Hormone (TSH) 0.458, Salicylates Level < 1.7L, Acetaminophen Level < 2.0L, Ethyl Alcohol Level < 0.003 04/04/19 12:15: Urine Amphetamines Screen POSITIVEH, Urine Benzodiazepines Screen POSITIVEH, Urine Opiates Screen POSITIVEH, Urine Methadone Screen NEGATIVE, Urine Barbiturates Screen NEGATIVE, Urine Phencyclidine Screen NEGATIVE, Urine Cocaine Metabolite Screen POSITIVEH, Urine Cannabinoids Screen POSITIVEH CBC/BMP Laboratory Tests 04/04/19 11:23 Red Blood Count 5.62, Mean Corpuscular Volume 88.8, Mean Corpuscular Hemoglobin 31.7, Mean Corpuscular Hemoglobin Concent 35.7, Red Cell Distribution Width 12.0 Home Medications Scheduled PRN Alprazolam (Alprazolam) 0.5 Mg Tablet, 0.5 MG PO TID PRN for ANXIETY Allergies Coded Allergies: venlafaxine (Verified Adverse Reaction, Intermediate, "brain zaps" per pt, 04/04/19) A-FIB/CHADSVASC A-FIB History Current/History of A-Fib/PAF?: No Current PO Anticoag Therapy: No BIA MONROE MD Apr 04, 2019 14:16
--- NOTE | 2019-04-04 15:19 | ECGEPIP ---
[facility] - ED Test Date: 2019-04-04 Pat Name: GENARO SCOTT Department: Room: - Gender: Male Production Checker: IVANNA : 1995 Requested By: Jhon Nugent Order Number: [id number] Reading MD: Dixie Abarca Measurements Intervals [place] Rate: 104 P: 73 [place]: 148 QRS: 82 QRSD: 101 T: 64 QT: 346 QTc: 457 Interpretive Statements SINUS TACHYCARDIA ABNORMAL RHYTHM ECG DECREASED RATE 10/02/17 Electronically Signed on 04-04-2019 15:19:01 EDT by Dixie Abarca
[2019-04-04] MEDS ORDERED: ALPRAZolam 0.5 MG TAB PO PRN (15:45)
[2019-04-04 17:55] VITALS: BP 139/96
[2019-04-04] MEDS: NS 1,000 ML IV SCH (18:35)
[2019-04-04] MEDS: NICOTINE 21MG/24HR 1 EA TRANSDERMAL TD SCH (19:00)
[2019-04-04 20:00] VITALS: BP 147/87
[2019-04-04] MEDS ORDERED: NICOTINE 21MG/24HR 1 EA TRANSDERMAL TD ONE (21:15)
[2019-04-04] MEDS: NICOTINE POLACRILEX 2 MG GUM PO PRN (21:42)
[2019-04-04] MEDS: ALPRAZolam 0.5 MG TAB PO PRN (23:23)
[2019-04-05] VITALS: BP 108/88
[2019-04-05] MEDS: NICOTINE POLACRILEX 2 MG GUM PO PRN ×2 (02:20→10:21)
[2019-04-05] MEDS: NS 1,000 ML IV SCH (03:07)
[2019-04-05 04:00] VITALS: BP 143/96
[2019-04-05 05:08] LABS: BASO % 0.4 % (0.0-1.0); EOS % 0.5 % (0.0-3.0); LYMPH % 26.8 % (24.0-44.0); MEAN CORPUSCULAR HEMOGLOBIN 30.5 pg (27.0-33.0); MEAN CORPUSCULAR HGB CONC 34.8 g/dl (32.0-36.5); MEAN CORPUSCULAR VOLUME 87.8 fl (80.0-96.0); MONO # 0.8 10^3/uL (0.0-0.8); MONO % 10.4 % (0.0-5.0); NEUTROPHILS # 4.6 10^3/uL (1.8-7.7); NEUTROPHILS % 61.6 % (36.0-66.0); PLATELET COUNT, AUTOMATED 223 10^3/uL (150-450); RED BLOOD COUNT 5.24 10^6/uL (4.30-6.10); WHITE BLOOD COUNT 7.4 10^3/uL (4.0-10.0)
[2019-04-05 05:31] LABS: ALT/SGPT 56 U/L (12-78); BILIRUBIN,TOTAL 2.3 MG/DL (0.2-1.0); BLOOD UREA NITROGEN 11 MG/DL (7-18); CARBON DIOXIDE LEVEL 30 MEQ/L (21-32); CHLORIDE LEVEL 108 MEQ/L (98-107); CREATININE FOR GFR 0.86 MG/DL (0.70-1.30); GLOMERULAR FILTRATION RATE > 60.0 (>60); GLUCOSE, FASTING 105 MG/DL (70-100); POTASSIUM SERUM 3.4 MEQ/L (3.5-5.1); SODIUM LEVEL 143 MEQ/L (136-145); TOTAL PROTEIN 7.5 GM/DL (6.4-8.2)
[2019-04-05 08:00] VITALS: BP 156/68
--- NOTE | 2019-04-05 08:08 | IPNPDOC ---
Subjective Date Seen The patient was seen on 04/05/19. Subjective Chief Complaint/HPI Patient is being seen for Suicide attempt with polypharmacy. patient states took drug yesterday identified as "lightning" which contained meth. States he did not care if he lived or from drug overdose. This AM,he states no SOB, mild chest pain (no localization or radiation), no palpitations, + anxiety, no nausea, no vomiting, no foot pain Objective Physical Examination General Exam: Positive: Alert, Cooperative, No Acute Distress Eye Exam: Positive: PERRLA ENT Exam: Positive: Mucous membr. moist/pink Neck Exam: Positive: Supple Chest Exam: Positive: Clear to auscultation, Normal air movement; Negative: Rales, Rhonchi, Wheezing Heart Exam: Positive: Tachycardic (103-110 with conversation (resting 100)), Regular Rhythm Telemetry: Positive: Sinus, Tachycardia Abdomen Exam: Positive: Normal bowel sounds Extremity Exam: Positive: Normal pulses Skin Exam: Positive: Nl turgor and temperature, Other skin issue (left fifth toe with mild erythema, no streaking, no edema no discharge) Neuro Exam: Positive: Normal Gait, Strength at 5/5 X4 ext, Normal Tone, Sensation Intact, Other (pressured speech) Psych Exam: Positive: Anxiety, Oriented x 3 Assessment /Plan Problems (1) Suicide attempt Status: Acute Response to Treatment: Stable Discussed With: [employer] (Consult Dr Shepard (psychiatry) - call back pending) (2) Cellulitis of toe, right Permanent Comment: fifth toe Last Edited By: Salvatore Meyer MD on Apr 05, 2019 08:05 Status: Acute Response to Treatment: Improving (change unasyn to po augmentin for 7 days. no signs of sepsis. ) (3) Drug abuse Permanent Comment: polypharmacy Last Edited By: Salvatore Meyer MD on Apr 05, 2019 08:02 Status: Chronic Response to Treatment: Stable (4) Tobacco dependence due to cigarettes Status: Chronic Response to Treatment: Stable (5) Mood disorder Permanent Comment: with anxiety/depression Last Edited By: Salvatore Meyer MD on Apr 05, 2019 08:02 Status: Chronic Response to Treatment: Stable Problem Specific Plan: Consult Specialist Plan/VTE VTE Prophylaxis Ordered?: Yes Plan IVF: Discontinue Diet: Continue Current Activity: Continue Current Medications: Change to PO Anticipated Discharge: Psych Disposition Patient is medically stable for discharge. Psychiatry consulted and case discussed with Dr Davis. Will evaluate this afternoon. [facility] Vital Signs/I&O Vital Signs Date Time Temp Pulse Resp B/P (MAP) Pulse Ox O2 Delivery O2 Flow Rate FiO2 04/05/19 04:00 99.4 102 22 143/96 (112) 99 04/04/19 12:41 Room Air I&O- Last 24 Hours up to 6 AM 04/05/19 06:00 Intake Total 2915 ml Output Total 1850 ml Balance 1065 ml Laboratory Data 24H LABS Laboratory Tests 2 04/04/19 11:23: Nucleated Red Blood Cells % (auto) 0.0, Anion Gap 9, Glomerular Filtration Rate > 60.0, Calcium Level 9.6, Aspartate Amino Transf (AST/SGOT) 27, Alanine Aminotr ansferase (ALT/SGPT) 65, Alkaline Phosphatase 93, Total Bilirubin 2.9H, Direct Bilirubin 0.8H, Total Creatine Kinase 203, Troponin I < 0.02, Total Protein 8.3H, Albumin 4.5, Albumin/Globulin Ratio 1.18, Thyroid Stimulating Hormone (TSH) 0.458, Salicylates Level < 1.7L, Acetaminophen Level < 2.0L, Ethyl Alcohol Level < 0.003 04/04/19 12:15: Urine Amphetamines Screen POSITIVEH, Urine Benzodiazepines Screen POSITIVEH, Urine Opiates Screen POSITIVEH, Urine Methadone Screen NEGATIVE, Urine Barbiturates Screen NEGATIVE, Urine Phencyclidine Screen NEGATIVE, Urine Cocaine Metabolite Screen POSITIVEH, Urine Cannabinoids Screen POSITIVEH 04/05/19 04:49: Nucleated Red Blood Cells % (auto) 0.0, Anion Gap 5L, Glomerular Filtration Rate > 60.0, Calcium Level 9.0, Aspartate Amino Transf (AST/SGOT) 4L, Alanine Aminotransferase (ALT/SGPT) 56, Alkaline Phosphatase 80, Total Bilirubin 2.3H, Total Protein 7.5, Albumin 4.0, Albumin/Globulin Ratio 1.14, Immature Granu locyte % (Auto) 0.3, White Blood Count 7.4, Red Blood Count 5.24, Hemoglobin 16.0, Hematocrit 46.0, Mean Corpuscular Volume 87.8, Mean Corpuscular Hemoglobin 30.5, Mean Corpuscular Hemoglobin Concent 34.8, Red Cell Distribution Width 11.9, Platelet Count 223, Neutrophils (%) (Auto) 61.6, Lymphocytes (%) (Auto) 26.8, Monocytes (%) (Auto) 10.4H, Eosinophils (%) (Auto) 0.5, Basophils (%) (Auto) 0.4, Neutrophils # (Auto) 4.6, Lymphocytes # (Auto) 2.0, Monocytes # (Auto) 0.8, Eosinophils # (Auto) 0.0, Basophils # (Auto) 0.0, Blood Urea Nitrogen 11, Creatinine 0.86, Sodium Level 143, Potassium Level 3.4L, Chloride Level 108H, Carbon Dioxide Level 30 CBC/BMP Laboratory Tests 04/04/19 11:23 Red Blood Count 5.62, Mean Corpuscular Volume 88.8, Mean Corpuscular Hemoglobin 31.7, Mean Corpuscular Hemoglobin Concent 35.7, Red Cell Distribution Width 12.0 04/05/19 04:49 Red Blood Count 5.24, Mean Corpuscular Volume 87.8, Mean Corpuscular Hemoglobin 30.5, Mean Corpuscular Hemoglobin Concent 34.8, Red Cell Distribution Width 11.9, Neutrophils (%) (Auto) 61.6, Lymphocytes (%) (Auto) 26.8, Monocytes (%) (Auto) 10.4 H, Eosinophils (%) (Auto) 0.5, Basophils (%) (Auto) 0.4, Neutrophils # (Auto) 4.6, Lymphocytes # (Auto) 2.0, Monocytes # (Auto) 0.8, Eosinophils # (Auto) 0.0, Basophils # (Auto) 0.0, Calcium Level 9.0, Aspartate Amino Transf (AST/SGOT) 4 L, Alanine Aminotransferase (ALT/SGPT) 56, Alkaline Phosphatase 80, Total Bilirubin 2.3 H, Total Protein 7.5, Albumin 4.0 Microbiology Microbiology 04/04/19 Blood Culture, Received Pending 04/04/19 Blood Culture, Received Pending SALVATORE MEYER DO Apr 05, 2019 08:08
[2019-04-05] MEDS: ALPRAZolam 0.5 MG TAB PO PRN ×2 (08:57→17:34)
[2019-04-05] MEDS: NICOTINE 21MG/24HR 1 EA TRANSDERMAL TD SCH (08:58)
[2019-04-05] MEDS ORDERED: AUGMENTIN 875 MG TAB PO SCH (09:00)
[2019-04-05 12:00] VITALS: BP 138/89
[2019-04-05 14:00] VITALS: BP 135/83
[2019-04-05] MEDS ORDERED: ALPRAZolam 0.5 MG TAB PO ONE (15:30)
[2019-04-05 16:00] VITALS: BP 132/88
[2019-04-05] MEDS ORDERED: AMOX875T2 PO (16:46)
--- NOTE | 2019-04-05 16:56 | DS.PDOC ---
Discharge Summary General Date of Admission Apr 04, 2019 at 15:14 Date of Discharge 04/05/19 Attending Physician: SALVATORE CHAVEZ DO Specialist/Consultants Involve: Saeed Shepard MD Discharge Summary PROCEDURES PERFORMED DURING STAY: none ADMITTING DIAGNOSES: Polypharmacy suicide attempt tobacco dependence cellulitis toe DISCHARGE DIAGNOSES: (1) Suicide attempt - polypharmacy/illicit drug abuse (2) Cellulitis of toe, right fifth toe (3) Drug abuse (4) Tobacco dependence due to cigarettes (5) Mood disorder with anxiety/depression COMPLICATIONS/CHIEF COMPLAINT: Suicide Attempt. HISTORY OF PRESENT ILLNESS: Patient presented to ED with suicidal attempt. see H&P for details. HOSPITAL COURSE: Patient observed for 24 hours. supportive care, IVF provided. When he was more alert, he states he took "lightening" and doesn't know what else beside meth was in the illicit drug. Urine drug screen positive for meth,opioid, cocaine, thc, etc. He states "I don't care if I live or ". patient was interested in talking to psychiatrist. Psychiatry consulted and recommended inpatient psychiatric evaluation. He had mild right 5th toe cellulitis and placed on augmentin with improvement. DISCHARGE MEDICATIONS: Please see below. ALLERGIES: Please see below. PHYSICAL EXAMINATION ON DISCHARGE: General Exam: Alert, Cooperative, No Acute Distress Eye Exam: PERRLA ENT Exam: Mucous membr. moist/pink Neck Exam:: Supple Chest Exam: Clear to auscultation, Normal air movement; Negative: Rales, Rhonchi, Wheezing Heart Exam: Tachycardic (103-110 with conversation (resting 100)), Regular Rhythm Telemetry: Sinus, Tachycardia Abdomen Exam: : Normal bowel sounds Extremity Exam: Normal pulses Skin Exam: Nl turgor and temperature, Other skin issue (left fifth toe with mild erythema, no streaking, no edema no discharge) Neuro Exam: Normal Gait, Strength at 5/5 X4 ext, Normal Tone, Sensation Intact, Other (pressured speech) Psych Exam: : Anxiety, Oriented x 3 LABORATORY DATA: Please see below. PROGNOSIS:guarded ACTIVITY: as tolerated DIET: regular DISCHARGE PLAN: transfer to inpatient psych DISPOSITION: involuntary 72 hour hold DISCHARGE INSTRUCTIONS: 1. continue augmentin x 7 days ITEMS TO FOLLOWUP ON ON OUTPATIENT: 1. recheck 5th toe celluitis in 7-10 days DISCHARGE CONDITION:stable TIME SPENT ON DISCHARGE: Greater than 30 minutes. Vital Signs/I&Os Vital Signs Date Time Temp Pulse Resp B/P (MAP) Pulse Ox O2 Delivery O2 Flow Rate FiO2 04/05/19 16:00 98.7 103 22 132/88 (103) 99 04/04/19 12:41 Room Air I&O- Last 24 Hours up to 6 AM 04/05/19 06:00 Intake Total 2915 ml Output Total 1850 ml Balance 1065 ml Laboratory Data Labs 24H Laboratory Tests 2 04/05/19 04:49: Immature Granulocyte % (Auto) 0.3, White Blood Count 7.4, Red Blood Count 5.24, Hemoglobin 16.0, Hematocrit 46.0, Mean Corpuscular Volume 87.8, Mean Corpuscular Hemoglobin 30.5, Mean Corpuscular Hemoglobin Concent 34.8, Red Cell Distribution Width 11.9, Platelet Count 223, Neutrophils (%) (Auto) 61.6, Lymphocytes (%) (Auto) 26.8, Monocytes (%) (Auto) 10.4H, Eosinophils (%) (Auto) 0.5, Basophils (%) (Auto) 0.4, Neutrophils # (Auto) 4.6, Lymphocytes # (Auto) 2.0, Monocytes # (Auto) 0.8, Eosinophils # (Auto) 0.0, Basophils # (Auto) 0.0, Nucleated Red Blood Cells % (auto) 0.0, Anion Gap 5L, Glomerular Filtration Rate > 60.0, Blood Urea Nitrogen 11, Creatinine 0.86, Sodium Level 143, Potassium Level 3.4L, Chloride Level 108H, Carbon Dioxide Level 30, Calcium Level 9.0, Aspartate Amino Transf (AST/SGOT) 4L, Alanine Aminotransferase (ALT/SGPT) 56, Alkaline Phosphatase 80, Total Bilirubin 2.3H, Total Protein 7.5, Albumin 4.0, Albumin/Globulin Ratio 1.14 CBC/BMP Laboratory Tests 04/05/19 04:49 Red Blood Count 5.24, Mean Corpuscular Volume 87.8, Mean Corpuscular Hemoglobin 30.5, Mean Corpuscular Hemoglobin Concent 34.8, Red Cell Distribution Width 11.9 , Neutrophils (%) (Auto) 61.6, Lymphocytes (%) (Auto) 26.8, Monocytes (%) (Auto) 10.4 H, Eosinophils (%) (Auto) 0.5, Basophils (%) (Auto) 0.4, Neutrophils # (Auto) 4.6, Lymphocytes # (Auto) 2.0, Monocytes # (Auto) 0.8, Eosinophils # (Auto) 0.0, Basophils # (Auto) 0.0, Calcium Level 9.0, Aspartate Amino Transf (AST/SGOT) 4 L, Alanine Aminotransferase (ALT/SGPT) 56, Alkaline Phosphatase 80, Total Bilirubin 2.3 H, Total Protein 7.5, Albumin 4.0 Microbiology Microbiology 04/04/19 Blood Culture, Received Pending 04/04/19 Blood Culture, Received Pending Discharge Medications Scheduled Amoxicillin/Potassium Clav (Amox-Clav 875-125 mg Tablet) 1 Each Tablet, 875 MG PO BID Allergies Coded Allergies: venlafaxine (Verified Adverse Reaction, Intermediate, "brain zaps" per pt, 04/04/19) SALVATORE CHAVEZ DO Apr 05, 2019 16:56
--- NOTE | 2019-04-05 17:51 | CR ---
DATE OF CONSULTATION: 04/05/2019 CHIEF COMPLAINT: He has taken an overdose. SUBJECTIVE: He is 23 years old. He is . I have been asked to see him by the hospitalist, Dr. Meyer, as the patient has taken an overdose, several drugs. The chart was reviewed, and some of the previous history is also reviewed, the patient is interviewed. He has had psychiatric difficulties and was in the inpatient unit here about a year and a half or so ago, October 2017, was seen by Dr. Andrew, discharge summary was reviewed, was diagnosed with bipolar disorder, post-traumatic stress disorder, cannabis use disorder, alcohol use disorder. At the time, he was discharged on Depakote, Seroquel, Celexa. He was brought into the hospital with altered mental status, was confused, had apparently been using several substances, and had attempted killing himself. This is according to the chart. The patient acknowledges taking methamphetamine, but denies that he was trying to kill himself. He says he had never used any methamphetamine in the past, and was given this by a friend and took a bit, says does not remember much after that. Urine toxicology has been positive for cocaine, benzodiazepines, cannabinoids and opiates. He says they were all contained within the amphetamine he was given. It should be noted, the patient is not very reliable when it comes to his history, in my opinion at present. 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 Later suggests plans to stay in the area, as he is visiting his mother and family, and they work the same job but from here. Focuses on the fact that he has been on alprazolam, suggests that he has been taking 2 mg three times a day, for a total of 6 mg, and that it has been cut down over here, and he feels more anxious, says sweats. Says has been getting these medicines from [facility]. It should be noted review of the registry, I-STOP, shows that he was prescribed alprazolam 0.5 mg to be taken three pills a day, a total of 90 pills. These were dispensed April 01, 2019. Says also takes Cymbalta at 30 mg twice a day, and that he has been on this regimen for the past several months. Says at some point has been attending AA meetings. He has not had any formal outpatient care, including since his last discharge from the hospital here a year and a half ago. Says sleep has been difficult, has a hard time getting to sleep, alludes to nightmares related to previous experiences, which he preferred not to discuss. This had been noticed at his previous hospitalization as well. He acknowledges that he does get those nightmares. Says takes the nighttime Xanax, which he says helps him relax. Says is concerned that the dose is being cut, and tended to focus on that. Says has stopped using any alcohol, or other drugs, says has been "clean" for several months, almost a year. Denies that he was trying to take his own life. Acknowledges stressors, particularly the fact that he does not have access to his daughter, has not had contact, per the patient, for about a year or so, says there is no legal reason why he cannot, but that his ex- does not allow him to. In addition to this, says his cousin is now to his ex-, and he found out yesterday that she is expecting a baby soon. Says has been advised by others that he should move past these factors, but finds it hard to do so. Acknowledges feeling anxious, and later suggests does well, and that his moods have generally been okay in the last several months. PAST PSYCHIATRIC HISTORY: Please refer to previous summaries, has had at least one hospitalization here, this was in 2017, diagnosed with bipolar disorder, as well as post-traumatic stress disorder, and substance abuse disorder as well. MEDICAL HISTORY: Has a history of hepatitis C; it should also be noted he has a history of intravenous drug use. SOCIAL HISTORY: Please refer to previous summaries, says he lives in [place], [place] now, and he works there, and that he was visiting family here, and plans to stay here for the next little while, but is a bit vague on that. Indicates has been doing well in [place]. MENTAL STATUS EXAM: He is sitting up in bed, he is neat, somewhat guarded, at other times superficially cooperative, mildly fidgety, appears anxious, and sometimes tearful. He displays no psychomotor retardation. He is coherent for the most part. He denies any suicidal thoughts or intent and denies any homicidal ideas or intents currently. There is no evidence of any psychosis. His cognition is grossly intact. No fluctuation of consciousness. He is alert and oriented. Intellect is average. Judgment and insight are quite compromised. VITAL SIGNS: Blood pressure 132/88, pulse 103, temperature 98.7. Urine toxicology positive for opiates, amphetamines, benzodiazepines, cocaine, cannabinoids. Chemistry: Complete metabolic profile essentially within normal limits except for potassium at 3.4, chloride at 108. Complete blood count done during this hospitalization essentially within normal limits, this was done today. ASSESSMENT: Other specified bipolar and related disorders. Post-traumatic stress disorder. Amphetamine use disorder. Cannabis use disorder. Status post overdose. Difficulties with previous marriage, ex- situation. History of substance abuse and mood instability. He has a history of mood instability, as well as substance misuse. He took methamphetamines, says he had not used any before, and does not remember much after that. He has been stressed, found out ex- is , is now with a cousin of his. Currently significantly minimizes difficulties, and the narrative and story tend to vary. Has very questionable judgment and insight, and remains at risk of harming himself. RECOMMENDATIONS: He needs inpatient psychiatric hospitalizations for further management and stabilization, when medically cleared. He has been cleared by Dr. Meyer, medicine, who I spoke with. He meets criteria for involuntary hospitalization, a DCS application is made. Thank you for the consult. If there are any questions, please call. The assessment took 60 minutes. ESPINOZA
== END 2019-04-05 20:20 ==
LOC: M ED 11:00 → M ED INP 15:14 → INTOOBSV 15:14 → M ICU 17:50
PROVIDERS: ADMIT Internal Medicine; ATTEND Family Medicine
DX: T14.91XA Suicide attempt, initial encounter (principal); F19.10 Other psychoactive substance abuse, uncomplicated; L03.031 Cellulitis of right toe; F41.9 Anxiety disorder, unspecified; B19.20 Unspecified viral hepatitis C without hepatic coma; Z91.5 Personal history of self-harm; F43.10 Post-traumatic stress disorder, unspecified; F31.89 Other bipolar disorder; F43.8 Other reactions to severe stress; R00.0 Tachycardia, unspecified; F17.210 Nicotine dependence, cigarettes, uncomplicated; Z79.899 Other long term (current) drug therapy; Z88.8 Allergy status to other drugs, medicaments and biological substances
CPT/HCPCS: 36415; 71045; 80048; 80053; 80076; 80307; 82550; 84443; 84484; 85025; 85027; 87040; 93005; 93041; 96361; 96365; 96375; 96376; 99285; G0480; J2060

== ENCOUNTER 2019-04-05 19:13 | Inpatient (IN) | payer BC ==
[~2019-04-05] VITALS: Ht 175.3 cm; Wt 76.6 kg
[~2019-04-05 19:13] MED LIST changes: +ALPR0.5T3 PO; +AMOX875T2 PO; -NICOTINE 21MG/24HR 1 EA TRANSDERMAL TD SCH
[2019-04-05] MEDS ORDERED: MAALOX 30 ML SUSP *UDC PO PRN (19:45)
[2019-04-05] MEDS ORDERED: OLANZapine ORAL DISINTEGRATING TAB 5MG PO PRN (19:45)
[2019-04-05] MEDS ORDERED: MOM 30ML SUSPENSION UDC PO PRN (19:45)
[2019-04-05 20:29] VITALS: BP 131/81
[2019-04-05] MEDS ORDERED: ALPRAZolam 0.5 MG TAB PO SCH (21:00)
[2019-04-05] MEDS ORDERED: LORazepam 1 MG TAB PO STA (21:28)
[2019-04-05] MEDS: NICOTINE 21MG/24HR 1 EA TRANSDERMAL TD SCH (21:30)
[2019-04-05] MEDS: traZODone 50 MG TAB PO PRN (21:32)
[2019-04-05] MEDS ORDERED: LORazepam 1 MG TAB PO PRN (22:15)
[2019-04-06 06:48] VITALS: BP 127/75
[2019-04-06] MEDS: ARIPiprazole 2 MG TAB PO SCH ×2 (09:00→20:40)
[2019-04-06] MEDS: NICOTINE 21MG/24HR 1 EA TRANSDERMAL TD SCH (09:48)
[2019-04-06] MEDS: AUGMENTIN 875 MG TAB PO SCH ×2 (09:49→20:40)
[2019-04-06] MEDS: ALPRAZolam 0.5 MG TAB PO SCH ×3 (09:49→20:40)
[2019-04-06] MEDS: QUEtiapine FUMARATE 50 MG TAB PO SCH ×3 (13:00→20:40)
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
[2019-04-06] MEDS ORDERED: QUEtiapine FUMARATE 50 MG TAB PO SCH (16:00)
[2019-04-06] MEDS: SERTRALINE HCL 50 MG TAB PO SCH (16:46)
[2019-04-06 18:00] VITALS: BP 131/64
[2019-04-06] MEDS ORDERED: ALPRAZolam 0.5 MG TAB PO SCH (21:00)
[2019-04-07 06:51] VITALS: BP 100/51
--- NOTE | 2019-04-07 07:22 | CR.PDOC ---
General Date of Consultation: Apr 06, 2019 Referring Provider: ABHIJIT BOSE MD Consultation REASON FOR CONSULTATION/CHIEF COMPLAINT: Medical management HISTORY OF PRESENT ILLNESS: 23 yo male with polysubstance overdose and depression. He was discharged from hospital yesterday 04/05/19 after suicide att empt and right 5th toe cellulitis. He was placed on augmentin for mild toe infection. He states no fever, no chills, no foot pain, no N, no V, no CP, no SOB ALLERGIES: Please see below. HOME MEDICATIONS: Please see below. PAST MEDICAL HISTORY: 1. Hepatitis C - unknown chronicity 2. anxiety/depression 3. tobacco dependence 4. polypharmacy abuse PAST SURGICAL HISTORY: 1. T&A FAMILY HISTORY: healthy parents, non contributory SOCIAL HISTORY: Marital status and/or living arrangements:single Tobacco use: 1 ppd ETOH: occasional REVIEW OF SYSTEMS:10 systems reviewed and negative except as per HPI PHYSICAL EXAMINATION: VITAL SIGNS: Please see below. GENERAL APPEARANCE: pleasant, NAD, AAOx3 HEENT: SU/EOMI; oral mucosa moist RESPIRATORY: CTA no W/R/R CARDIOVASCULAR: RRR no murmur ABDOMEN: soft NT ND NABS EXTREMITIES: no edema SKIN: right 5th toe with mild erythema along lateral edge - improved from 04/05/19 LABORATORY DATA: Please see below. ASSESSMENT/PLAN: 1. Cellulitis right 5th toe - minimal - continue with augmentin for total 7 days treatment (will end on 04/11/19) 2. history of Hep C - unknown chronicity - can be followed as outpatient 3. Mood disorder/suicide attempt - management per psychiatry. Will sign off on case at this time. please call if additional assistance is needed. Thank you for the consult and allowing the hospitalist team to participate in this patient care Current Medications Acetaminophen (Tylenol Tab) 650 mg Q6HP PRN PO HEADACHE or DISCOMFORT; Start 04/05/19 at 19:45 Al Hydrox/Mg Hydrox/Simethicone (Mylanta) 30 ml Q4HP PRN PO HEARTBURN/INDIGESTION; Start 04/05/19 at 19:45 Alprazolam (Xanax) 1 mg TID PO ; Start 04/05/19 at 21:00; Stop 04/05/19 at 21:00; Status DC Alprazolam (Xanax) 1 mg TID PO Last administered on 04/06/19 16:45; Start 04/06/19 at 09:00 Alprazolam (Xanax) 1 mg TID PO ; Start 04/06/19 at 21:00; Stop 04/06/19 at 21:00; Status DC Amoxicillin/ Clavulanate Potassium (Augmentin) 875 mg BID PO Last administered on 04/06/19 09:49; Start 04/06/19 at 09:00 Aripiprazole (AbiLIFY) 2 mg BID PO ; Start 04/06/19 at 09:00 Lorazepam (Ativan) 1 mg Q4HP PRN PO ANXIETY Last administered on 04/06/19 10:57; Start 04/05/19 at 22:15; Stop 04/06/19 at 12:05; Status DC Lorazepam (Ativan) 1 mg STAT STAT PO Last administered on 04/05/19 21:32; Start 04/05/19 at 21:28; Stop 04/05/19 at 21:30; Status DC Magnesium Hydroxide (Milk Of Magnesia) 30 ml DAILYPRN PRN PO CONSTIPATION; Start 04/05/19 at 19:45 Nicotine (Nicoderm Cq 21mg) 1 patch DAILY TD Last administered on 04/06/19 09:48; Start 04/05/19 at 09:00 Olanzapine (ZyPREXA ZYDIS) 5 mg Q4HP PRN PO AGITATION Last administered on 04/05/19 20:56; Start 04/05/19 at 19:45 Quetiapine Fumarate (SEROquel) 50 mg QID PO ; Start 04/06/19 at 13:00 Quetiapine Fumarate (SEROquel) 50 mg TID PO ; Start 04/06/19 at 16:00; Stop 04/06/19 at 16:00; Status DC Sertraline HCl (Zoloft) 50 mg QAM PO Last administered on 04/06/19 16:46; Start 04/06/19 at 09:00 Trazodone HCl (Desyrel) 50 mg QHSP PRN PO INSOMNIA Last administered on 04/05/19 21:32; Start 04/05/19 at 19:45 Vital Signs/I&O Vital Signs Date Time Temp Pulse Resp B/P (MAP) Pulse Ox O2 Delivery O2 Flow Rate FiO2 6/5/19 18:00 99.0 78 16 131/64 (86) Allergies Coded Allergies: venlafaxine (Verified Adverse Reaction, Intermediate, "brain zaps" per pt, 04/04/19) Home Medications Scheduled Amoxicillin/Potassium Clav (Amox-Clav 875-125 mg Tablet) 1 Each Tablet, 875 MG PO BID for 7 Days, #14 SALVATORE CHAVEZ DO Apr 06, 2019 19:56
[2019-04-07] MEDS: AUGMENTIN 875 MG TAB PO SCH ×2 (08:20→20:46)
[2019-04-07] MEDS: ARIPiprazole 2 MG TAB PO SCH ×2 (08:20→20:46)
[2019-04-07] MEDS: SERTRALINE HCL 50 MG TAB PO SCH (08:20)
[2019-04-07] MEDS: ACETAMINOPHEN TAB 650MG DOSE (2X325MG) PO PRN (08:21)
[2019-04-07] MEDS: ALPRAZolam 0.5 MG TAB PO SCH ×3 (08:21→20:46)
[2019-04-07] MEDS: QUEtiapine FUMARATE 50 MG TAB PO SCH (08:21)
[2019-04-07] MEDS: NICOTINE 21MG/24HR 1 EA TRANSDERMAL TD SCH (09:53)
[2019-04-07 18:00] VITALS: BP 117/63
[2019-04-07] MEDS: traZODone 50 MG TAB PO PRN (20:46)
[2019-04-07] MEDS ORDERED: QUEtiapine FUMARATE 100 MG TAB PO SCH (21:00)
--- NOTE | 2019-04-07 21:03 | MHIPNPDOC ---
[facility] Progress Note Progress Note DATE OF SERVICE: 04/07/19 HISTORY: Patient is a 23 -year-old , male, who presents tearful and anxious, says he doesn't even know why he is here, all what he knows is that he was going to [place] and then he realized he was at the hospital. He says he has experienced visual hallucinations and illusions where he sees that the bennett are melting, he was hearing voices, he says that he thought one of his childhood and longtime friends, was in the room with him and he has been talking to her. He says that a friend who lives at a hotel up [facility] ws the one who gave him the drug 5 days ago and injected it IV on him. His "friend" told him that was going make him feel well and he was not going to think about his anymore. He says that once he came to this [facility] from [place], he learned his , with whom he is nos, is with his first cousin's child and he says he wants to "beat the shit out of him and he would have a gun he either would kill himself or kill that man, but that's why I don't have guns" VITAL SIGNS: See below. NEW TEST RESULTS: See below CURRENT MEDICATIONS: See below. MENTAL STATUS EXAMINATION: Patient is a 23-year old male, who is alert, cooperative, dressed in hospital clothes. Speech: Is clear, spontaneous, fluent. Language skills are good. Thought processes including: linear, coherent. Thought content: focused on going back to [place], going back to work stay away from his as much as possible. Denies SI/HI Description of abnormal or psychotic thoughts: He denies AV hallucinations, denies thought delusions, denies illusions, he says that he doesn't see the bennett melting as he saw them yesterday Judgment: improving Insight: improving Orientation: x 3 Recent and remote memory: good Attention span and concentration: good Language: Latvian, normal Fund of knowledge: average Mood: sad. Affect: constricted, appropriate, full DIAGNOSES: 1. Unspecified mood disorder, r/o bipolar 2 disorder 2. Generalized Anxiety disorder 3. R/O panic disorder 4. Polysubstance use disorder 5. Cluster B personality disorder ASSESSMENT: The patient was calm this morning, cooperative and not longer irritable. He said he didn't have homicidal ideation, the only thing he wants is to go back to [place], go back to work and he says he will stay away from his as much as he can. He will still have to communicate with her because of their child but it will be long distance. He is not hallucinating at this time, he is future orientated, his judgment and impulse control have improved. He slept well yesterday we spoke in the morning and he said he felt that sleeping had helped her a lot. He is not that insightful about his drug use and its consequences. MANAGEMENT PLAN: Will discharge him if mother has no safety concerns and depending on how he presents tomorrow TIME SPENT:20 minutes. Vital Signs Vital Signs Date Time Temp Pulse Resp B/P (MAP) Pulse Ox O2 Delivery O2 Flow Rate FiO2 04/07/19 18:00 99.2 77 16 117/63 (81) Current Medications Current Medications Acetaminophen (Tylenol Tab) 650 mg Q6HP PRN PO HEADACHE or DISCOMFORT Last administered on 04/07/19at 08:21; Start 04/05/19 at 19:45 Al Hydrox/Mg Hydrox/Simethicone (Mylanta) 30 ml Q4HP PRN PO HEARTBURN/INDIGESTION; Start 04/05/19 at 19:45 Alprazolam (Xanax) 1 mg TID PO ; Start 04/05/19 at 21:00; Stop 04/05/19 at 21:00; Status DC Alprazolam (Xanax) 1 mg TID PO Last administered on 04/07/19 20:46; Start 04/06/19 at 09:00 Alprazolam (Xanax) 1 mg TID PO ; Start 04/06/19 at 21:00; Stop 04/06/19 at 21:00; Status DC Amoxicillin/ Clavulanate Potassium (Augmentin) 875 mg BID PO Last administered on 04/07/19 20:46; Start 04/06/19 at 09:00 Aripiprazole (AbiLIFY) 2 mg BID PO Last administered on 04/07/19 20:46; Start 04/06/19 at 09:00 Lorazepam (Ativan) 1 mg Q4HP PRN PO ANXIETY Last administered on 04/06/19 10:57; Start 04/05/19 at 22:15; Stop 04/06/19 at 12:05; Status DC Lorazepam (Ativan) 1 mg STAT STAT PO Last administered on 04/05/19 21:32; Start 04/05/19 at 21:28; Stop 04/05/19 at 21:30; Status DC Magnesium Hydroxide (Milk Of Magnesia) 30 ml DAILYPRN PRN PO CONSTIPATION; Start 04/05/19 at 19:45 Nicotine (Nicoderm Cq 21mg) 1 patch DAILY TD Last administered on 04/07/19 09:53; Start 04/05/19 at 09:00 Olanzapine (ZyPREXA ZYDIS) 5 mg Q4HP PRN PO AGITATION Last administered on 04/05/19 20:56; Start 04/05/19 at 19:45 Quetiapine Fumarate (SEROquel) 50 mg QID PO Last administered on 04/06/19 20:40; Start 04/06/19 at 13:00; Stop 04/07/19 at 11:07; Status DC Quetiapine Fumarate (SEROquel) 50 mg TID PO ; Start 04/06/19 at 16:00; Stop 04/06/19 at 16:00; Status DC Quetiapine Fumarate (SEROquel) 100 mg QHS PO Last administered on 04/07/19 20:46; Start 04/07/19 at 21:00 Sertraline HCl (Zoloft) 50 mg QAM PO Last administered on 04/07/19 08:20; Start 04/06/19 at 09:00 Trazodone HCl (Desyrel) 50 mg QHSP PRN PO INSOMNIA Last administered on 04/07/19 20:46; Start 04/05/19 at 19:45 Allergies Coded Allergies: venlafaxine (Verified Adverse Reaction, Intermediate, "brain zaps" per pt, 04/04/19) ABHIJIT BOSE MD Apr 07, 2019 20:57
[2019-04-08 06:40] VITALS: BP 110/65
[2019-04-08] MEDS: SERTRALINE HCL 50 MG TAB PO SCH (08:24)
[2019-04-08] MEDS: ARIPiprazole 2 MG TAB PO SCH (08:24)
[2019-04-08] MEDS: AUGMENTIN 875 MG TAB PO SCH (08:24)
[2019-04-08] MEDS: ACETAMINOPHEN TAB 650MG DOSE (2X325MG) PO PRN (08:24)
[2019-04-08] MEDS: ALPRAZolam 0.5 MG TAB PO SCH (08:24)
[2019-04-08] MEDS: NICOTINE 21MG/24HR 1 EA TRANSDERMAL TD SCH (08:25)
[2019-04-08] MEDS ORDERED: NICO21PAT TD (11:11)
[2019-04-08] MEDS ORDERED: ABIL1TAB13 PO (11:11)
[2019-04-08] MEDS ORDERED: SERT-155 PO (11:11)
[2019-04-08] MEDS ORDERED: ABIL1TAB11 PO (11:27)
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
== END 2019-04-08 11:40 | disposition home or self-care (01) | DRG 753 ==
LOC: M PSY 20:23
PROVIDERS: ADMIT Psychiatry & Neurology Psychiatry; ATTEND Psychiatry & Neurology Psychiatry
DX: F31.81 Bipolar II disorder (principal); B18.2 Chronic viral hepatitis C; F41.0 Panic disorder [episodic paroxysmal anxiety]; F60.3 Borderline personality disorder; Z88.8 Allergy status to other drugs, medicaments and biological substances; F17.200 Nicotine dependence, unspecified, uncomplicated; L03.031 Cellulitis of right toe; Z79.899 Other long term (current) drug therapy

== ENCOUNTER → 2020-06-28 | Outpatient (CLI) | payer BC, OTHER ==
[~2020-06-28] MED LIST changes: +ABIL1TAB11 PO; +ABIL1TAB13 PO; +NICO21PAT TD; +SERT50TA29 PO
[2020-06-28 18:56] LABS: BASO % 0.7 % (0.0-1.0); EOS # 0.1 10^3/uL (0.0-0.5); EOS % 1.6 % (0.0-3.0); HEMOGLOBIN 14.1 g/dl (13.5-17.5); LYMPH # 2.8 10^3/uL (1.5-5.0); LYMPH % 49.8 % (24.0-44.0); MEAN CORPUSCULAR HEMOGLOBIN 30.1 pg (27.0-33.0); MEAN CORPUSCULAR HGB CONC 33.6 g/dl (32.0-36.5); MEAN CORPUSCULAR VOLUME 89.7 fl (80.0-96.0); MONO # 0.4 10^3/uL (0.0-0.8); MONO % 7.4 % (0.0-5.0); NEUTROPHILS # 2.3 10^3/uL (1.5-8.5); NEUTROPHILS % 40.5 % (36.0-66.0); PLATELET COUNT, AUTOMATED 243 10^3/uL (150-450); RED BLOOD COUNT 4.68 10^6/uL (4.30-6.10); WHITE BLOOD COUNT 5.6 10^3/uL (4.0-10.0)
[2020-06-28 19:02] LABS: ALT/SGPT 114 U/L (12-78); BILIRUBIN,DIRECT 0.2 MG/DL (0.0-0.2); BILIRUBIN,TOTAL 0.6 MG/DL (0.2-1.0); BLOOD UREA NITROGEN 16 MG/DL (7-18); CALCIUM LEVEL 9.4 MG/DL (8.5-10.1); CARBON DIOXIDE LEVEL 30 MEQ/L (21-32); CHLORIDE LEVEL 105 MEQ/L (98-107); CREATININE FOR GFR 0.91 MG/DL (0.70-1.30); FREE T4 1.03 NG/DL (0.76-1.46); GLOMERULAR FILTRATION RATE > 60.0 (>60); GLUCOSE, FASTING 99 MG/DL (70-100); POTASSIUM SERUM 4.3 MEQ/L (3.5-5.1); SODIUM LEVEL 140 MEQ/L (136-145); THYROID STIMULATING HORMONE 0.614 uIU/ML (0.358-3.740); TOTAL PROTEIN 7.4 GM/DL (6.4-8.2)
[2020-06-29 11:46] LABS: HIV 1&2 SCREEN CENTAUR NEGATIVE (NEGATIVE)
[2020-07-04 23:07] LABS: HEPATITIS A IgG TOTAL Positive (Negative); HEPATITIS B CORE ANTIBODY IGG Negative (Negative); HEPATITIS C VIRUS GENOTYPE 1a (.)
== END ==
LOC: M PLALAB 14:30
PROVIDERS: ATTEND Nurse Practitioner Family
DX: F19.10 Other psychoactive substance abuse, uncomplicated (principal)

== ENCOUNTER → 2020-07-12 | Outpatient (CLI) | payer BC, OTHER ==
[2020-07-19 00:08] LABS: HEPATITIS C QUANTITATION 863630 IU/mL (.)
== END ==
LOC: M PLALAB 14:25
PROVIDERS: ATTEND Internal Medicine Infectious Disease
DX: B18.2 Chronic viral hepatitis C (principal)

== ENCOUNTER → 2020-08-20 | Outpatient (REF) | payer OTHER ==
[2020-08-20 11:20] LABS: ALBUMIN 3.9 GM/DL (3.2-5.2); BILIRUBIN,DIRECT 0.1 MG/DL (0.0-0.2); BILIRUBIN,TOTAL 0.6 MG/DL (0.2-1.0); TOTAL PROTEIN 7.2 GM/DL (6.4-8.2)
[2020-08-22 00:12] LABS: HEPATITIS C QUANTITATION HCV Not Detected IU/mL (.)
== END ==
LOC: M SFHCPLAZ 08:23
PROVIDERS: ATTEND Internal Medicine Infectious Disease
DX: B18.2 Chronic viral hepatitis C (principal)

== ENCOUNTER → 2021-01-29 | Outpatient (REF) | payer OTHER ==
[~2021-01-29] MED LIST changes: +QUET50TA3 PO; -QUET5TAB PO
[2021-01-29 17:46] LABS: ALBUMIN 3.9 GM/DL (3.2-5.2); BILIRUBIN,DIRECT 0.1 MG/DL (0.0-0.2); BILIRUBIN,TOTAL 0.4 MG/DL (0.2-1.0); TOTAL PROTEIN 6.9 GM/DL (6.4-8.2)
== END ==
LOC: M SFHCPLAZ 15:03
PROVIDERS: ATTEND Internal Medicine Infectious Disease
DX: B18.2 Chronic viral hepatitis C (principal)

== ENCOUNTER → 2022-09-10 | Outpatient (REF) | payer OTHER ==
[~2022-09-10] MED LIST changes: -QUET400T PO; +QUET400T2 PO; -QUET50TA3 PO; +QUET50TA4 PO
== END ==
LOC: M LAB REF 16:04
PROVIDERS: ATTEND Surgery
DX: L72.3 Sebaceous cyst (principal)

== ENCOUNTER → 2023-04-24 | Outpatient (REF) | payer OTHER | LOC: M LAB REF 16:20 | PROVIDERS: ATTEND Physician Assistant | DX: J02.9 Acute pharyngitis, unspecified (principal) ==

== ENCOUNTER 2025-06-22 22:08 | Emergency (ER) | payer MEDICAID, OTHER ==
[~2025-06-22] VITALS: Ht 175.3 cm; Wt 81.0 kg
[~2025-06-22 22:08] MED LIST changes: +CLON0.5T17 PO; -DEPA250T32 PO; +DIVA-65 PO; +EZET10TA58 PO; +METH-1177 PO; +METH10CO PO; +METH5TA PO; +PRAZ1CAP PO; -PROZ20CA11 PO; +PROZ20CA12 PO; +SERT-141 PO; +VITA200044 PO; +ZOLO100T PO
[2025-06-22 23:35] LABS: PLATELET COUNT, AUTOMATED 188 10^3/uL (150-450)
[2025-06-22 23:36] LABS: AMPHETAMINES LEVEL URINE NEGATIVE (NEGATIVE); BARBITURATES URINE NEGATIVE (NEGATIVE); PHENCYCLIDINE URINE NEGATIVE (NEGATIVE)
[2025-06-22 23:37] LABS: BENZODIAZEPINES URINE POSITIVE (NEGATIVE); CANNABINOIDS URINE POSITIVE (NEGATIVE); COCAINE METABOLITE URINE POSITIVE (NEGATIVE); METHADONE URINE POSITIVE (NEGATIVE); OPIATES URINE POSITIVE (NEGATIVE)
[2025-06-23 00:10] LABS: ETHYL ALCOHOL (ETHANOL) < 0.003 % (0.000-0.010)
[2025-06-23 00:12] LABS: ALT/SGPT 34 U/L (7.0-40); AST/SGOT 45 U/L (<34); CALCIUM LEVEL 8.8 MG/DL (8.5-10.1); CARBON DIOXIDE LEVEL 29 MMOL/L (20-31); CHLORIDE LEVEL 100 MMOL/L (98-107); CREATININE FOR GFR 0.80 MG/DL (0.70-1.30); GLOMERULAR FILTRATION RATE > 90.0 (>60); POTASSIUM SERUM 3.7 MMOL/L (3.5-5.1); SALICYLATE LEVEL < 3.0 MG/DL (<30); SODIUM LEVEL 140 MMOL/L (136-145)
[2025-06-23 04:39] VITALS: BP 141/85
[2025-06-23] MEDS ORDERED: HOME MED LIST COMPLETE! XX SCH (08:30)
[2025-06-23 10:19] VITALS: TEMP 98.4; O2SAT 98
== END 2025-06-23 10:43 | disposition home or self-care (01) ==
LOC: M ED 22:08
DX: F43.0 Acute stress reaction (principal); F19.10 Other psychoactive substance abuse, uncomplicated; F17.200 Nicotine dependence, unspecified, uncomplicated; Z88.8 Allergy status to other drugs, medicaments and biological substances; Z79.899 Other long term (current) drug therapy